=== PATIENT | male | born 1985 | race Caucasian/White ===

== ENCOUNTER 2016-12-24 03:10 | Emergency (ER) | payer MEDICAID ==
[2016-12-24 03:32] VITALS: BP 135/85; PULSE 98; RESP 16; TEMP 97; O2SAT 96
[2016-12-24] MEDS ORDERED: AZITHROMYCIN 250 MG TAB PO ONE (03:47)
[2016-12-24] MEDS ORDERED: AZITHROMYCIN 200 MG/5 ML BOTTLE ONE (03:51)
== END 2016-12-24 04:09 | disposition home or self-care (01) | DRG 605 ==
LOC: ED 03:10
DX: S61.211A Laceration without foreign body of left index finger without damage to nail, initial encounter (principal); J06.9 Acute upper respiratory infection, unspecified; W27.0XXA Contact with workbench tool, initial encounter
CPT/HCPCS: 99283; A6232